=== PATIENT | male | born 1950 | race Caucasian/White ===

== ENCOUNTER 2018-09-16 10:21 | Inpatient (IN) | payer MEDICARE, OTHER ==
[~2018-09-16] VITALS: Ht 172.7 cm; Wt 96.7 kg
[2018-09-16] MEDS ORDERED: HYDR-3672 PO (11:32)
[2018-09-16] MEDS ORDERED: ASPI-817 PO (11:33)
[2018-09-16] MEDS ORDERED: SIMV40TA2 PO (11:33)
[2018-09-16] MEDS ORDERED: ERGO500013 PO (11:33)
[2018-09-16] MEDS ORDERED: FENO160T13 PO (11:34)
[2018-09-16] MEDS ORDERED: LOSA1TAB22 PO (11:34)
[2018-09-16] MEDS ORDERED: ESOM40CA PO (11:35)
[2018-09-16] MEDS ORDERED: NITROGLYCERIN 2% 1 GM OINT PKT TD STA (11:35)
[2018-09-16] MEDS ORDERED: GABA100C14 PO (11:35)
--- NOTE | 2018-09-16 11:40 | ERD ---
ER Documentation Chief Complaint Chief Complaint CP X2DAYS HPI 68-year-old male history of hypertension hyperlipidemia presents to the ED complaining of chest pain. Over the last several days patient has had episodes of exertional, moderate, nonradiating, pressure-like chest pain relieved by rest accompanied by mild shortness of breath no nausea, vomiting or diaphoresis. Currently asymptomatic. No leg pain or swelling. No URI symptoms, cough or hemoptysis. Denies anorexia, night sweats, fevers or chills. ROS All systems reviewed and are negative except as per history of present illness. Medications Home Meds Reported Medications Gabapentin* (Gabapentin*) 100 Mg Capsule, 100 MG PO TID, #90 CAP 09/16/18 Esomeprazole Mag Trihydrate (Nexium) 40 Mg Capsule.dr, 40 MG PO DAILY, #30 CAP 09/16/18 Fenofibrate, Micronized* (Fenofibrate*) 160 Mg Tablet, 160 MG PO DAILY, TAB 09/16/18 Losartan-Hydrochlorothiazide (Losartan-HCTZ) 50-12.5 Mg Tab, 1 TAB PO DAILY, TAB 09/16/18 Aspirin* (Aspirin* EC) 81 Mg Tablet.dr, 81 MG PO DAILY, TAB 09/16/18 Simvastatin* (Zocor*) 40 Mg Tablet, 40 MG PO QHS, #30 TAB 09/16/18 Ergocalciferol (Vitamin D2) (VITAMIN D2) 50,000 Unit Capsule, 32404 UNIT PO Q SUN, CAP 09/16/18 Hydralazine Hcl* (Apresoline*) 50 Mg Tab, 50 MG PO Q8 PRN for NEEDED, #90 TAB 09/16/18 Allergies Allergies: Coded Allergies: No Known Allergy (Unverified , 09/16/18) PMhx/Soc History of Surgery: Yes Anesthesia Reaction: No Hx Neurological Disorder: No Hx Respiratory Disorders: No Hx Cardiac Disorders: Yes (HTN) Hx Psychiatric Problems: No Hx Miscellaneous Medical Probl: Yes (Hyperlipidemia) Hx Alcohol Use: No Hx Substance Use: No Hx Tobacco Use: Yes Smoking Status: Current every day smoker FmHx No coronary artery disease, stroke or cancer. Physical Exam Vitals Vital Signs Date Temp Pulse Resp B/P (MAP) Pulse Ox O2 O2 Flow FiO2 Time Delivery Rate 09/16/18 72 15 143/78 99 Room Air 11:00 (99) 09/16/18 98.4 70 21 159/71 99 10:30 (100) Physical Exam Const: Alert, no acute distress Head: Atraumatic Eyes: Pupils equal reactive light, extraocular movements are intact. Anicteric. Normal Conjunctiva ENT: Normal External Ears, Nose and Mouth. Neck: Full range of motion. No JVD. No meningismus. Resp: Breath sounds are equal and clear to auscultation bilaterally. No rales rhonchi or wheezes. Cardio: Regular rate and rhythm, no murmurs. Chest wall: No tenderness, ecchymosis or bruising. Abd: Soft, obese, non tender, non distended. No rebound or guarding. Normal bowel sounds Skin: No petechiae or rashes Back: No midline or flank tenderness Ext: No cyanosis, or edema. No calf swelling or tenderness. Neur: Awake and alert. No focal deficit observed. Psych: Normal Mood and Affect. not anxious or depressed. Result Diagram: 09/18/18 0523 09/18/18522 Results 24 hrs Laboratory Tests Test 09/16/18 10:43 White Blood Count 6.6 10^3/ul Red Blood Count 5.09 10^6/ul Hemoglobin 15.4 g/dl Hematocrit 45.5 % Mean Corpuscular Volume 89.4 fl Mean Corpuscular Hemoglobin 30.3 pg Mean Corpuscular Hemoglobin Concent 33.8 g/dl Red Cell Distribution Width 12.7 % Platelet Count 206 10^3/UL Mean Platelet Volume 9.2 fl Immature Granulocytes % 0.500 % Neutrophils % 57.7 % Lymphocytes % 31.6 % Monocytes % 7.3 % Eosinophils % 2.1 % Basophils % 0.8 % Nucleated Red Blood Cells % 0.0 /100WBC Immature Granulocytes # 0.030 10^3/ul Neutrophils # 3.8 10^3/ul Lymphocytes # 2.1 10^3/ul Monocytes # 0.5 10^3/ul Eosinophils # 0.1 10^3/ul Basophils # 0.1 10^3/ul Nucleated Red Blood Cells # 0.0 10^3/ul Sodium Level 142 mmol/L Potassium Level 4.3 mmol/L Chloride Level 107 mmol/L Carbon Dioxide Level 26 mmol/L Anion Gap 9 Blood Urea Nitrogen 21 mg/dl Creatinine 0.95 mg/dl Est Glomerular Filtrat Rate mL/min > 60 mL/min Glucose Level 105 mg/dl Calcium Level 9.6 mg/dl Troponin I 0.133 ng/ml Current Medications Medications Dose Sig/Heriberto Start Time Status Last (Trade) Ordered Route PRN Stop Time Admin Dose Reason Admin 1 inch ONCE STAT 09/16/18 DC 09/16/18 Nitroglycerin TD 11:35 09/16/18 11:46 11:37 (Nitroglyceri n 2% Oint) Procedures/MDM DOCUMENTS REVIEWED: ED nurse, EMS report. EKG: Time: 1046. Sinus rhythm. Ventricular rate 67, normal MT and QRS intervals. No acute ST segment elevation or depression. No axis deviation or ectopy. My Interpretation: Normal EKG IMAGING: Chest AP portable. Cardiac silhouette is normal. The costophrenic angles are clear. No effusions or infiltrates. No abnormalities of the bony thorax. My interpretation. MEDICAL DECISION MAKIN-year-old male history of hypertension presents to the ED for evaluation CBC to evaluate for of chest pain. Anemia, leukocytosis and thrombocytopenia is unremarkable. Chemistry reveals no electrolyte abnormalities, hyperglycemia or renal insufficiency. Troponin is elevated at 0.133. EKG reveals no acute ischemic changes or dysrhythmia. Chest x-ray is unremarkable for CHF or pneumonia. Broad differentials considered including but not limited to acute coronary syndrome, pulmonary embolism, aortic dissection, musculoskeletal pain and gastritis/GERD. Heart score 4. Elevated troponin and chest pain without acute EKG changes consistent with non-ST segment elevation myocardial infarction. Aspirin is given. Admit to telemetry for cardiology consultation, further risk stratification, evaluation and management. PATIENT CARE TRANSITIONED: Time: 11: 40, Dr. Brown. Counseled patient and family regarding diagnosis, diagnostic results and plan for admission. Smoking Cessation Therapy: Pt. was lectured for greater than 3 minutes on the health risks of continued smoking and the benefits of cessation. Departure Diagnosis: Primary Impression: Chest pain Chest pain type: unspecified Qualified Codes: R07.9 - Chest pain, unspecified Additional Impressions: NSTEMI (non-ST elevated myocardial infarction) Hypertension Hypertension type: essential hypertension Qualified Codes: I10 - Essential (primary) hypertension Hyperlipidemia Hyperlipidemia type: unspecified Qualified Codes: E78.5 - Hyperlipidemia, unspecified Tobacco use disorder, severe, dependence Condition: Serious GRECIA ZAVALETA MD September 16, 2018 11:40
[2018-09-16] MEDS ORDERED: ONDANSETRON 4 MG INJ IV PRN ×2 (12:00→15:30)
[2018-09-16] MEDS ORDERED: ACETAMINOPHEN 325 MG TAB PO PRN ×2 (12:00→15:30)
[2018-09-16] MEDS ORDERED: morphine 2 MG INJ IV PRN (15:30)
[2018-09-16] MEDS ORDERED: LORAZEPAM 0.5 MG TAB PO PRN (15:30)
[2018-09-16] MEDS ORDERED: NITROGLYCERIN (SL) 0.4 MG TAB SL PRN (15:30)
[2018-09-16] MEDS ORDERED: SOD CHLORIDE 0.9% 1,000 ML IV SCH (15:30)
[2018-09-16] MEDS ORDERED: ZOLPIDEM 5 MG TAB PO PRN (15:30)
--- NOTE | 2018-09-16 16:17 | HP ---
DATE OF ADMISSION: 09/16/2018 PRESENTING COMPLAINT: Chest pain. HISTORY OF PRESENTING COMPLAINT: A 68-year-old male with past medical history of high blood pressure and dyslipidemia, who presents to the emergency room with intermittent chest pain lasting 2 to 3 days. The patient has been in the hospital until about 3 days ago when he started to have mild chest discomfort in the mid sternal area. Chest discomfort started as a niggling sensation and was intermittent, but kept recurring and kept getting more and more in intensity with every course. He was planning to see his primary care doctor and has a cardiology appointment in 3 days and was hoping he could wait until then. Unfortunately, the pain recurred again yesterday and persisted and warranted his emergency room visit today. In the ER visit today in the emergency room, preliminary evaluation is consistent with elevated troponin even though mild and the patient is being admitted for further workup and management. PAST MEDICAL HISTORY: High blood pressure, dyslipidemia, chronic neuropathy. PAST SURGICAL HISTORY: The patient denies. ALLERGIES: NO KNOWN DRUG ALLERGIES. SOCIAL HISTORY: He is a chronic smoker. Occasional alcohol use. Denies illicit drug use. FAMILY HISTORY: Positive for high blood pressure. REVIEW OF SYSTEMS: Per HPI. PHYSICAL EXAMINATION: GENERAL: He is a very pleasant male who is alert and oriented, in no distress. HEENT: His head is normocephalic without evidence of trauma. Pupils are equal, round and reactive. Mucous membranes are moist. Posterior pharynx is clear of erythema and exudate. NECK: Supple without adenopathy, tenderness. CHEST: Clear to auscultation. CARDIOVASCULAR: Heart sounds are S1 and S2 without added sounds or murmurs. ABDOMEN: Soft, nontender, nondistended. Normoactive bowel sounds. EXTREMITIES: The patient has no lower extremity edema. SKIN: Devoid of rash or jaundice. LABORATORY VALUES AND DIAGNOSTIC DATA: At this time, he has CBC and basic metabolic profile and also I reviewed the chest x-ray and his EKG. The main abnormality is just troponin elevation mildly. Chest x-ray and EKG were essentially unremarkable. ASSESSMENT: A 68-year-old male with past medical history of high blood pressure who presents to emergency room with complaints of 2 to 3-day history of intermittent worsening chest pain currently admitted and managed as follows: 1. Non-ST elevation myocardial infarction. 2. Hypertension with suboptimal control. 3. Current dyslipidemia. 4. Chronic neuropathy. 5. Chronic vitamin D deficiency, on supplementation. 6. History of gastroesophageal reflux disease. 7. Chronic tobacco user PLAN OF CARE: The patient will be admitted to telemetry floor and complete ACS rule out with 3 sets of cardiac enzymes. We will also get a 2D echocardiogram to assess vascular status, cardiology consultation for further intervention, supportive care with pain control, antipyretics if indicated and antiemetics also as indicated. Plan of care has been discussed with patient and his family in detail. Questions have been answered. For further information and clarification, please see the patient's chart. At this time, I will hold off on starting full dose anticoagulation therapy. Continue the patient on baby aspirin and follow trend of troponin levels. Of note, the patient has been very comfortable at the time and has no further chest pain. Smoking Cessation Therapy: Pt. was counselled for greater than 3 minutes on the health risks of continued smoking and the benefits of cessation, this will continue to be reinforced throughout hospitalization. Dictated By: HIPOLITO ONEILL MD BA/NTS Conf#: [id number] DID#: [id number] CC: LOVELY HODGSON MD; GRECIA ZAVALETA MD;*EndCC* MTDD
[2018-09-16 17:22] VITALS: PULSE 61
[2018-09-16 17:25] VITALS: BP 144/69; PULSE 63; RESP 20
[2018-09-16 17:31] VITALS: Ht 172.7 cm; Wt 96.7 kg
[2018-09-16] MEDS: DOCUSATE SODIUM 100 MG CAP PO SCH (18:04)
[2018-09-16] MEDS: HEPARIN 5,000 UNIT/1 ML VIAL SC SCH ×2 (18:38→22:58)
[2018-09-16 19:46] VITALS: BP 123/63; PULSE 62; RESP 20
[2018-09-16 20:00] VITALS: PULSE 67
--- NOTE | 2018-09-16 20:29 | CONS ---
DATE OF ADMISSION: 09/16/2018 DATE OF CONSULTATION: 09/16/2018 TYPE OF CONSULTATION: Cardiology. REASON FOR CONSULTATION: Non-ST elevation myocardial infarction. REQUESTING PHYSICIAN: Hipolito Oneill MD, from the hospitalist service. HISTORY OF PRESENT ILLNESS: Mr. Moore is a 68-year-old male with history of hypertension who state s that he does have exercise yesterday and after eating food, felt okay and then began to have a stra nge sensation in his chest. He said, "This stayed after a few minutes" and he was fine until the day of admission when he again woke up and had a strange pressure-like pain in his chest. The patient c alled his daughter and daughter called the paramedics. Upon arrival, temperature was 98.4, blood pre ssure 159/71, pulse 76, respiratory rate 21, satting 99%. The patient's labs were notable for white blood cell count of 6.6, hemoglobin 15.4, platelet count of 206, sodium 142, potassium 4.3, creatinin e 0.9, BUN 21, troponin positive at 0.133. The patient underwent a chest x-ray revealing no acute ca rdiopulmonary disease. The patient's electrocardiogram reveals sinus rhythm, rate of 64, normal axis , normal intervals with inferior T-wave flattening. The patient subsequently now awaits admit to the floor and has been treated with nitro paste. PAST MEDICAL HISTORY: As above in HPI. MEDICATIONS CURRENTLY IN HOSPITAL: 1. Aspirin 81 mg daily. 2. IV fluid hydration at 75 mL an hour. 3. Sublingual nitroglycerin p.r.n. 4. Colace p.r.n. 5. Morphine p.r.n. 6. Zofran p.r.n. 7. Heparin 5000 subcutaneously q.8. ALLERGIES: NO KNOWN DRUG ALLERGIES. SOCIAL HISTORY: Positive tobacco, social EtOH. No illicit drug use. FAMILY HISTORY: No history of sudden cardiac or early CAD. REVIEW OF SYSTEMS: As above in HPI. CONSTITUTIONAL: No fevers, chills. PULMONARY: No current shortness of breath. CARDIOVASCULAR: Intermittent chest pain. GASTROINTESTINAL: No vomiting. GENITOURINARY: No hematuria. MUSCULOSKELETAL: Degenerative joint disease. PSYCHIATRIC: Documented psych history, but possible anxiety by medications. NEUROLOGIC: No documented history of CVA. PHYSICAL EXAMINATION VITAL SIGNS: Temperature of 98.4, blood pressure 142/78, pulse 72, respiratory rate 15, satting 99% on room air. GENERAL: The patient is alert, awake, in no acute distress. NECK: JVP approximately is 8 to 9 cm of water. CHEST: Fair air movement throughout. HEART: Regular rate and rhythm. Normal S1, S2, I/ systolic murmur, nondisplaced PMI. ABDOMEN: Positive bowel sounds, soft. EXTREMITIES: No significant pitting edema, 1+ pulses bilateral posterior tibial. LABORATORY DATA: As above in HPI. No further labs for my review at this time. IMAGING STUDIES: As above in HPI. No further imaging studies for my review at this time. ELECTROCARDIOGRAM: As above in HPI. No further electrocardiograms for my review at this time. IMPRESSION: 1. Positive troponin consistent with non-ST elevation myocardial infarction. 2. Chest pain. 3. Abnormal electrocardiogram with T-wave flattening. 4. Hypertension. 5. Dyslipidemia. 6. Ongoing tobacco usage, tobacco dependence. RECOMMENDATIONS: 1. At this time, we would admit the patient to telemetry monitoring to follow rhythm and rate closel y. 2. We would continue the patient's aspirin at this time and we will continue the patient's subcutane ous heparin. If the patient's troponins continue to trend up, we will initiate the patient on IV hep alexander. 3. Place the patient on a beta michi in the setting of positive troponins and chest pain. 4. Give the patient sublingual nitroglycerin for recurrent episodes of chest pain. 5. Check a 2D echo for this patient's ejection fraction, wall motion and major valve abnormalities. 6. The patient will require either cardiac stress testing to assess significance of minimally positi ve troponin or if it continues to trend up and ongoing symptoms, will likely require a direct cardiac catheterization in order to assess possibility of significant obstructive coronary artery disease le nding to symptoms of chest pain and positive troponin and subsequent admit to the hospital. 7. Additionally, we will check a fasting lipid panel for general risk stratification and initiate li pid-lowering medication as necessary. Thank you for allowing me to take part in the care of this patient. I will continue to follow him ve ry closely with you with further recommendations to be made as the [facility]. Dictated By: LOVELY ALBERTO/AUDIE Conf#: [id number] DID#: [id number] CC: HIPOLITO ONEILL MD;*[facility]*
[2018-09-16] MEDS ORDERED: FAMOTIDINE 20 MG TAB PO SCH (21:00)
[2018-09-16] MEDS: ATORVASTATIN 20 MG TAB PO SCH (22:43)
[2018-09-16] MEDS: GABAPENTIN 100 MG CAP PO SCH (22:43)
[2018-09-16] MEDS: METOPROLOL 25 MG TAB PO SCH (22:51)
[2018-09-16 23:49] VITALS: BP 107/57; PULSE 67; RESP 20
[2018-09-17] VITALS (10 sets, daily range): BP systolic 100–121; BP diastolic 54–58; PULSE 56–69; RESP 19–20
[2018-09-17] MEDS: DOCUSATE SODIUM 100 MG CAP PO SCH ×2 (03:30→17:40)
[2018-09-17] MEDS: PANTOPRAZOLE (EC) 40 MG TAB PO SCH (06:24)
[2018-09-17] MEDS: HEPARIN 5,000 UNIT/1 ML VIAL SC SCH ×3 (06:35→22:25)
[2018-09-17] MEDS: FENOFIBRATE 145 MG TAB PO SCH (08:12)
[2018-09-17] MEDS: ASPIRIN 81 MG TAB PO SCH (08:12)
[2018-09-17] MEDS: HYDROCHLOROTHIAZIDE 12.5 MG CAP PO SCH (08:13)
[2018-09-17] MEDS: METOPROLOL 25 MG TAB PO SCH ×2 (08:13→21:00)
[2018-09-17] MEDS: GABAPENTIN 100 MG CAP PO SCH ×3 (08:14→22:10)
[2018-09-17] MEDS: LOSARTAN 50 MG TAB PO SCH (08:14)
--- NOTE | 2018-09-17 12:33 | PN ---
Date/Time of Note Date/Time of Note DATE: 09/17/18 TIME: 12:32 Objective Vitals Vital Signs Date Temp Pulse Resp B/P (MAP) Pulse Ox O2 O2 Flow FiO2 Time Delivery Rate 09/17/18 58 12:01 09/17/18 98.3 20 108/57 97 11:17 (74) 09/16/18 Room Air 17:25 Intake and Output 09/16/18 09/16/18 09/17/18 1515:00 23:00 07:00 IntakeIntake Total 400 ml BalanceBalance 400 ml Results Result Diagram: 09/17/1851609/17/18516 Medications Medications Current Medications Lorazepam (Ativan) 0.5 mg Q8H PRN PO .ANXIETY; Start 09/16/18 at 15:30 Ondansetron HCl (Zofran Inj) 4 mg Q6H PRN IV NAUSEA/VOMITING; Start 09/16/18 at 15:30 Aspirin (Aspirin) 81 mg DAILY PO Last administered on 09/17/18at 08:12; Admin Do se 81 MG; Start 09/17/18 at 09:00 Nitroglycerin (Nitroglycerin (Sl Tab) 0.4 Mg) 1 tab Q5M PRN SL .CHEST PAIN; Start 09/16/18 at 15:30 Acetaminophen (Tylenol Tab) 650 mg Q6H PRN PO .PAIN 1-3 OR TEMP; Start 09/16/18 at 15:30 Morphine Sulfate (morphine) 2 mg Q4H PRN IV .PAIN 7-10; Start 09/16/18 at 15:30 Zolpidem Tartrate (Ambien) 5 mg QHS PRN PO .INSOMNIA; Start 09/16/18 at 15:30 Docusate Sodium (Colace) 100 mg Q12H PO ; Start 09/16/18 at 15:30 Heparin Sodium (Porcine) (Heparin (5000 Units/1ml)) 5,000 unit Q8 SC Last administered on 09/17/18at 06:35; Admin Dose 5,000 UNIT; Start 09/16/18 at 15:30 Gabapentin (Neurontin) 100 mg TID PO Last administered on 09/17/18at 08:14; Admin Dose 100 MG; Start 09/16/18 at 21:00 Pantoprazole (Protonix Tab) 40 mg DAILY@0600 PO Last administered on 09/17/18 06:24; Admin Dose 40 MG; Start 09/17/18 at 06:00 Fenofibrate (Tricor) 145 mg DAILY PO Last administered on 09/17/18 08:12; Admin Dose 145 MG; Start 09/17/18 at 09:00 Atorvastatin Calcium (Lipitor) 20 mg QHS PO Last administered on 09/16/18at 22:43; Admin Dose 20 MG; Start 09/16/18 at 21:00 Losartan Potassium (Cozaar) 50 mg DAILY PO Last administered on 09/17/18 08:14; Admin Dose 50 MG; Start 09/17/18 at 09:00 Metoprolol Tartrate (Lopressor) 25 mg BID PO Last administered on 09/17/18 08:13; Admin Dose 25 MG; Start 09/16/18 at 21:00 Hydrochlorothiazide (Hydrochlorothiazide) 12.5 mg DAILY PO Last administered on 09/17/18 08:13; Admin Dose 12.5 MG; Start 09/17/18 at 09:00 VTE Prophylaxis Risk score (from Ns)>0 risk: 5 SCD applied (from Ns): No SCD contraindication: other Lines/Catheters IV Catheter Type: Garcia in Place: No Assessment/Plan Hospital Course Subjective Patient states he feels much better however still does have this lingering central chest abnormality Objective Physical exam General: Patient is laying in bed and answers questions appropriately Mentation: Patient is alert and oriented 4, Head: Normocephalic atraumatic Eyes: EOMI, pupils reactive to light Neck: Supple, nontender, midline Respiratory: Clear to auscultation bilaterally Cardiovascular: regular rate, no obvious murmurs Gastrointestinal: non-tender to palpation, bowel sounds heard. Neurological: Moves all extremities spontaneously Skin: No new skin lesions Assessment and plan Non-ST elevation [place] -Cardiology on board -Troponin within normal limits -Aspirin, statin -Continue metoprolol -Cardiology recommendations appreciated, Hypertension -Adjust home meds as needed This lipidemia -Continue home meds Chronic neuropathy -Continue meds GERD -Continue Protonix, add Carafate for throat discomfort Chronic tobacco use -Cessation suggested Disposition -Some mild discomfort, monitor for 24 more hours, defer to additional cardiology recommendations. LUIS FELIPE SHAH September 17, 2018 12:33
[2018-09-17] MEDS: SUCRALFATE (100 MG/ML) 10ML CUP PO SCH ×3 (13:32→22:08)
--- NOTE | 2018-09-17 14:56 | CONS ---
Assessment/Plan Assessment/Plan Hospital Course (Demo Recall) IMPRESSION: 1. Positive troponin consistent with non-ST elevation myocardial infarction.- now trended negative. NO active CP. 2. Chest pain. 3. Abnormal electrocardiogram with T-wave flattening. 4. Hypertension. 5. Dyslipidemia. 6. Ongoing tobacco usage, tobacco dependence. Recc: -Tele -Continue asa -Continue BB/HCTZ/losartan -Continue statin -Continue tricor -Will discuss LHC with patient placed on scheduled for wednesday versus lexiscan stress test in am to asses significance of initial positive troponin Consultation Date/Type/Reason Admit Date/Time September 16, 2018 at 11:41 Initial Consult Date 09/16/18 Type of Consult Cardiology Reason for Consultation Nstemi Requesting Provider: HIPOLITO ONEILL Date/Time of Note DATE: 09/17/18 TIME: 14:49 Exam/Review of Systems Vital Signs Vitals Vital Signs Date Temp Pulse Resp B/P (MAP) Pulse Ox O2 O2 Flow FiO2 Time Delivery Rate 09/17/18 58 12:01 09/17/18 98.3 20 108/57 97 11:17 (74) 09/16/18 Room Air 17:25 Intake and Output 09/16/18 09/16/18 09/17/18 1515:00 23:00 07:00 IntakeIntake Total 400 ml BalanceBalance 400 ml Exam Exam Review of Systems: CONSTITUTIONAL: No fevers, chills. PULMONARY: No sob CARDIOVASCULAR: No current chest pain GASTROINTESTINAL: No nausea/vomiting. GENITOURINARY: No hematuria/dysuria. MUSCULOSKELETAL: No myagias/arthalgias. PSYCHIATRIC: The patient denies depression. NEUROLOGIC: No weakness Constitutional: alert Psych: no complaints Head: normocephalic ENMT: mucosa pink and moist Neck: supple, jvd (9) Respiratory: diminished breath sounds Cardiovascular: regular rate and rhythm Gastrointestinal: soft, non-tender Musculoskeletal: muscle tone (normal) Extremities: edema (none) Neurological: other (NO focal deficits) Labs Result Diagram: 09/17/18 0509/17/18 05 Results 24hrs Laboratory Tests Test 09/16/18 16:11 09/16/18 22:47 09/17/18 05:17 Prothrombin Time 14.0 Prothrombin Time Ratio 1.1 INR International Normalized Ratio 1.07 Activated Partial Thromboplast Time 26.3 Creatine Kinase 46 35 Creatine Kinase Index 1.2 1.4 Creatinine Kinase MB (Mass) 0.54 0.49 Troponin I 0.097 0.109 White Blood Count 7.2 Red Blood Count 4.47 L Hemoglobin 13.7 L Hematocrit 40.1 L Mean Corpuscular Volume 89.7 Mean Corpuscular Hemoglobin 30.6 Mean Corpuscular Hemoglobin Concent 34.2 Red Cell Distribution Width 12.7 Platelet Count 196 Mean Platelet Volume 9.4 Immature Granulocytes % 0.700 H Neutrophils % 51.4 Lymphocytes % 35.7 Monocytes % 7.8 Eosinophils % 3.7 Basophils % 0.7 Nucleated Red Blood Cells % 0.0 Immature Granulocytes # 0.050 H Neutrophils # 3.7 Lymphocytes # 2.6 Monocytes # 0.6 Eosinophils # 0.3 Basophils # 0.1 Nucleated Red Blood Cells # 0.0 Sodium Level 141 Potassium Level 3.8 Chloride Level 109 Carbon Dioxide Level 24 Anion Gap 8 Blood Urea Nitrogen 18 Creatinine 0.93 Est Glomerular Filtrat Rate mL/min > 60 Glucose Level 97 Hemoglobin A1c 5.2 Calcium Level 9.0 Magnesium Level 2.0 Total Bilirubin 0.4 Direct Bilirubin 0.00 Indirect Bilirubin 0.4 Aspartate Amino Transf (AST/SGOT) 26 Alanine Aminotransferase (ALT/SGPT) 37 Alkaline Phosphatase 38 L Total Protein 6.2 Albumin 3.7 Triglycerides Level 280 H Cholesterol Level 147 LDL Cholesterol, Calculated 69 HDL Cholesterol 22 L Cholesterol/HDL Ratio 6.6 Thyroid Stimulating Hormone (TSH) 1.470 Medications Medications Current Medications Lorazepam (Ativan) 0.5 mg Q8H PRN PO .ANXIETY; Start 09/16/18 at 15:30 Ondansetron HCl (Zofran Inj) 4 mg Q6H PRN IV NAUSEA/VOMITING; Start 09/16/18 at 15:30 Aspirin (Aspirin) 81 mg DAILY PO Last administered on 09/17/18at 08:12; Admin Dose 81 MG; Start 09/17/18 at 09:00 Nitroglycerin (Nitroglycerin (Sl Tab) 0.4 Mg) 1 tab Q5M PRN SL .CHEST PAIN; Start 09/16/18 at 15:30 Acetaminophen (Tylenol Tab) 650 mg Q6H PRN PO .PAIN 1-3 OR TEMP; Start 09/16/18 at 15:30 Morphine Sulfate (morphine) 2 mg Q4H PRN IV .PAIN 7-10; Start 09/16/18 at 15:30 Zolpidem Tartrate (Ambien) 5 mg QHS PRN PO .INSOMNIA; Start 09/16/18 at 15:30 Docusate Sodium (Colace) 100 mg Q12H PO ; Start 09/16/18 at 15:30 Heparin Sodium (Porcine) (Heparin (5000 Units/1ml)) 5,000 unit Q8 SC Last administered on 09/17/18 13:38; Admin Dose 5,000 UNIT; Start 09/16/18 at 15:30 Gabapentin (Neurontin) 100 mg TID PO Last administered on 09/17/18 13:32; Admin Dose 100 MG; Start 09/16/18 at 21:00 Pantoprazole (Protonix Tab) 40 mg DAILY@0600 PO Last administered on 09/17/18 06:24; Admin Dose 40 MG; Start 09/17/18 at 06:00 Fenofibrate (Tricor) 145 mg DAILY PO Last administered on 09/17/18 08:12; Admin Dose 145 MG; Start 09/17/18 at 09:00 Atorvastatin Calcium (Lipitor) 20 mg QHS PO Last administered on 09/16/18 22:43; Admin Dose 20 MG; Start 09/16/18 at 21:00 Losartan Potassium (Cozaar) 50 mg DAILY PO Last administered on 09/17/18 08:14; Admin Dose 50 MG; Start 09/17/18 at 09:00 Metoprolol Tartrate (Lopressor) 25 mg BID PO Last administered on 09/17/18 08:13; Admin Dose 25 MG; Start 09/16/18 at 21:00 Hydrochlorothiazide (Hydrochlorothiazide) 12.5 mg DAILY PO Last administered on 09/17/18 08:13; Admin Dose 12.5 MG; Start 09/17/18 at 09:00 Sucralfate (Carafate Susp) 1 gm QID PO Last administered on 09/17/18 13:32; Admin Dose 1 GM; Start 09/17/18 at 13:00 LOVELY HODGSON September 17, 2018 14:56
--- NOTE | 2018-09-17 18:45 | RADRPT ---
Echocardiogram Report Patient Name: SUZAN ZHOUPatient ID: [id number] : 1950 (68y 8m)Study Date: 09/17/2018 7:41:45 AM Gender: MAccession #: [id number] Tech: Gurvinder Woods [facility] Location: [address] Ref.Physician: HIPOLITO ONEILL Height(Cm): BSA: Weight(Kg): Quality: AdequateAccount #: Procedures: Echocardiographic Report: Transthoracic echocardiogram with complete 2D, M-Mode, and doppler examination. Indications: NSTEMI. Measurements: 2D/M Mode Doppler Measurement Value Normal Range Measurement Value Normal Range LVIDd 2D 4.1 [ 4.2 - 5.8 ] cm AV Peak Bubba 1.2 [ 100.0 - 170.0 ] cm/sec LVIDs 2D 2.8 [ 2.5 - 4.0 ] cm AV Peak PG 6.0 [ 2.0 - 9.0 ] mmHg LVPWd 2D 1.0 [ 0.6 - 1.0 ] cm LVOT Peak Bubba 1.0 [ 70.0 - 110.0 ] cm/sec IVSd 2D 1.5 [ 0.6 - 1.0 ] cm LVOT Peak PG 4.0 [ 2.0 - 6.0 ] mmHg AoR Diam 2D 2.7 [ 2.6 - 3.4 ] cm MV E Peak Bubba 0.8 [ 60.0 - 130.0 ] cm/sec EDV 2D 75.5 [ 62.0 - 150.0 ] ml MV A Peak Bubba 0.9 [ 100.0 - 120.0 ] cm/sec ESV 2D 30.9 [ 21.0 - 61.0 ] ml MV E/A 0.9 [ 0.8 - 1.5 ] ratio EF 2D 59.1 [ 52.0 - 72.0 ] percent MV Decel Time 229 [ 104 - 258 ] msec LA Dimen 2D 4.0 [ 3.0 - 4.0 ] cm Lat E` Bubba 0.1 [ 10.0 - 15.0 ] cm/sec Lateral E/E` 7.3 [ 1.0 - 2.0 ] ratio MV E/A 0.9 [ 0.8 - 1.5 ] ratio TR Peak Bubba 2.7 [ 100.0 - 280.0 ] cm/sec TR Peak PG 29.0 mmHg RVSP 32.0 [ 10.0 - 36.0 ] mmHg Findings: Left Ventricle: Normal left ventricular systolic function. Normal left ventricular cavity size. Moderate asymmetric septal hypertrophy. Ejection fraction is visually estimated at 55-60 %. Tissue Doppler/Mitral Doppler indices are consistent with impaired relaxation (Stage I diastolic dysfunction). Right Ventricle: Normal right ventricular size. Normal right ventricular systolic function. Left Atrium: The left atrium is normal in size. Right Atrium: The right atrium is normal in size. Mitral Valve: Mild mitral leaflet calcification. Mild mitral annular calcification. Trace mitral regurgitation. Aortic Valve: No hemodynamically significant aortic stenosis by doppler. Mild aortic valve regurgitation. Tricuspid Valve: Normal appearance of the tricuspid valve. Estimated peak PA systolic pressure 32 mmHg. There is mild tricuspid regurgitation. Pericardium: Normal pericardium with no significant pericardial effusion. Aorta: Normal aortic root. IVC: Normal size and normal respiratory collapse consistent with normal right atrial pressure. Conclusions: Normal left ventricular systolic function. Normal left ventricular cavity size. Moderate asymmetric septal hypertrophy. Ejection fraction is visually estimated at 55-60 %. Tissue Doppler/Mitral Doppler indices are consistent with impaired relaxation (Stage I diastolic dysfunction). ). Mild mitral leaflet calcification. Mild mitral annular calcification. Trace mitral regurgitation. No hemodynamically significant aortic stenosis by doppler. Mild aortic valve regurgitation. Normal appearance of the tricuspid valve. Estimated peak PA systolic pressure 32 mmHg. There is mild tricuspid regurgitation. Electronically Signed By: Danny Moncada 2018-09-17 18:44:43 PDT
[2018-09-17] MEDS: ATORVASTATIN 20 MG TAB PO SCH (22:09)
[2018-09-18] VITALS (9 sets, daily range): BP systolic 115–137; BP diastolic 57–70; PULSE 57–71; RESP 18–19
[2018-09-18] MEDS: DOCUSATE SODIUM 100 MG CAP PO SCH ×2 (03:30→16:07)
[2018-09-18] MEDS: PANTOPRAZOLE (EC) 40 MG TAB PO SCH (06:18)
[2018-09-18] MEDS: HEPARIN 5,000 UNIT/1 ML VIAL SC SCH ×3 (06:27→21:37)
[2018-09-18] MEDS: SUCRALFATE (100 MG/ML) 10ML CUP PO SCH ×4 (08:46→21:11)
[2018-09-18] MEDS: GABAPENTIN 100 MG CAP PO SCH ×3 (08:46→21:11)
[2018-09-18] MEDS: FENOFIBRATE 145 MG TAB PO SCH (08:46)
[2018-09-18] MEDS: METOPROLOL 25 MG TAB PO SCH ×2 (08:47→21:12)
[2018-09-18] MEDS: HYDROCHLOROTHIAZIDE 12.5 MG CAP PO SCH (08:47)
[2018-09-18] MEDS: ASPIRIN 81 MG TAB PO SCH (08:47)
[2018-09-18] MEDS: LOSARTAN 50 MG TAB PO SCH (08:48)
[2018-09-18] MEDS ORDERED: hydrALAzine 20 MG INJ IV PRN (11:00)
[2018-09-18] MEDS ORDERED: REGADENOSON 0.4 MG/5 ML SYG ONE (11:03)
--- NOTE | 2018-09-18 11:29 | PN ---
Date/Time of Note Date/Time of Note DATE: 09/18/18 TIME: 11:28 Objective Vitals Vital Signs Date Temp Pulse Resp B/P (MAP) Pulse Ox O2 O2 Flow FiO2 Time Delivery Rate 09/18/18 59 08:01 09/18/18 98.1 19 135/63 97 07:29 (87) 09/16/18 Room Air 17:25 Intake and Output 09/17/18 09/17/18 09/18/18 1515:00 23:00 07:00 IntakeIntake Total 350 ml 650 ml BalanceBalance 350 ml 650 ml Results Result Diagram: 09/18/1852209/18/18522 Medications Medications Current Medications Lorazepam (Ativan) 0.5 mg Q8H PRN PO .ANXIETY; Start 09/16/18 at 15:30 Ondansetron HCl (Zofran Inj) 4 mg Q6H PRN IV NAUSEA/VOMITING; Start 09/16/18 at 15:30 Aspirin (Aspirin) 81 mg DAILY PO Last administered on 09/18/18at 08:47; Admin Dose 81 MG; Start 09/17/18 at 09:00 Nitroglycerin (Nitroglycerin (Sl Tab) 0.4 Mg) 1 tab Q5M PRN SL .CHEST PAIN; Start 09/16/18 at 15:30 Acetaminophen (Tylenol Tab) 650 mg Q6H PRN PO .PAIN 1-3 OR TEMP; Start 09/16/18 at 15:30 Morphine Sulfate (morphine) 2 mg Q4H PRN IV .PAIN 7-10; Start 09/16/18 at 15:30 Zolpidem Tartrate (Ambien) 5 mg QHS PRN PO .INSOMNIA; Start 09/16/18 at 15:30 Docusate Sodium (Colace) 100 mg Q12H PO Last administered on 09/17/18at 17:40; Admin Dose 100 MG; Start 09/16/18 at 15:30 Heparin Sodium (Porcine) (Heparin (5000 Units/1ml)) 5,000 unit Q8 SC Last administered on 09/18/18at 06:27; Admin Dose 5,000 UNIT; Start 09/16/18 at 15:30 Gabapentin (Neurontin) 100 mg TID PO Last administered on 09/18/18at 08:46; Admin Dose 100 MG; Start 09/16/18 at 21:00 Pantoprazole (Protonix Tab) 40 mg DAILY@0600 PO Last administered on 09/18/18 06:18; Admin Dose 40 MG; Start 09/17/18 at 06:00 Fenofibrate (Tricor) 145 mg DAILY PO Last administered on 09/18/18at 08:46; Admin Dose 145 MG; Start 09/17/18 at 09:00 Losartan Potassium (Cozaar) 50 mg DAILY PO Last administered on 09/18/18at 08:48; Admin Dose 50 MG; Start 09/17/18 at 09:00 Metoprolol Tartrate (Lopressor) 25 mg BID PO Last administered on 09/18/18at 08:47; Admin Dose 25 MG; Start 09/16/18 at 21:00 Sucralfate (Carafate Susp) 1 gm QID PO Last administered on 09/18/18 08:46; Admin Dose 1 GM; Start 09/17/18 at 13:00 Atorvastatin Calcium (Lipitor) 80 mg QHS PO ; Start 09/18/18 at 21:00 Hydralazine HCl (Apresoline) 10 mg Q4H PRN IV sbp greater than 160; Start 09/18/18 at 11:00 VTE Prophylaxis Risk score (from Nsg)>0 risk: 4 SCD applied (from Nsg): No SCD contraindication: other Lines/Catheters IV Catheter Type: Garcia in Place: No Assessment/Plan Hospital Course Subjective Patient doing well, stress test today Objective Physical exam General: Patient is laying in bed and answers questions appropriately Mentation: Patient is alert and oriented 4, Head: Normocephalic atraumatic Eyes: EOMI, pupils reactive to light Neck: Supple, nontender, midline Respiratory: Clear to auscultation bilaterally Cardiovascular: regular rate, no obvious murmurs Gastrointestinal: non-tender to palpation, bowel sounds heard. Neurological: Moves all extremities spontaneously Skin: No new skin lesions Assessment and plan Non-ST elevation [place] -Cardiology on board -Troponin within normal limits -Aspirin, statin -Continue metoprolol -Cardiology recommendations appreciated, Hypertension -Adjust home meds as needed This lipidemia -Continue home meds Chronic neuropathy -Continue meds GERD -Continue Protonix, add Carafate for throat discomfort Chronic tobacco use -Cessation suggested Disposition -Stress test today, monitor overnight for change in blood pressure medications. LUIS FELIPE SHAH 5, 2019 11:29
--- NOTE | 2018-09-18 12:23 | CONS ---
Assessment/Plan Assessment/Plan Hospital Course (Demo Recall) IMPRESSION: 1. Positive troponin consistent with non-ST elevation myocardial infarction.- now trended negative. NO active CP. 2. Chest pain. 3. Abnormal electrocardiogram with T-wave flattening. 4. Hypertension. 5. Dyslipidemia. 6. Ongoing tobacco usage, tobacco dependence. Recc: -Tele -Continue asa -Continue BB/HCTZ/losartan -Continue statin -Continue tricor -Lexiscan stres est today to assess significance of mildly positive troponin that now trended negative Consultation Date/Type/Reason Admit Date/Time September 16, 2018 at 11:41 Initial Consult Date 09/16/18 Type of Consult Cardiology Reason for Consultation poistive troponin/chest pain Requesting Provider: HIPOLITO ONEILL Date/Time of Note DATE: 09/18/18 TIME: 12:21 Exam/Review of Systems Vital Signs Vitals Vital Signs Date Temp Pulse Resp B/P (MAP) Pulse Ox O2 O2 Flow FiO2 Time Delivery Rate 09/18/18 59 08:01 09/18/18 98.1 19 135/63 97 07:29 (87) 09/16/18 Room Air 17:25 Intake and Output 09/17/18 09/17/18 09/18/18 1515:00 23:00 07:00 IntakeIntake Total 350 ml 650 ml BalanceBalance 350 ml 650 ml Exam Exam Review of Systems: CONSTITUTIONAL: No fevers, chills. PULMONARY: No sob CARDIOVASCULAR: No chest pain/palpitations GASTROINTESTINAL: No nausea/vomiting. GENITOURINARY: No hematuria/dysuria. MUSCULOSKELETAL: No myagias/arthalgias. PSYCHIATRIC: The patient denies depression. NEUROLOGIC: No weakness Constitutional: alert Psych: no complaints Head: normocephalic ENMT: mucosa pink and moist Neck: supple, jvd (9 cm water) Respiratory: diminished breath sounds Cardiovascular: regular rate and rhythm Gastrointestinal: soft, non-tender Musculoskeletal: muscle tone (normal) Extremities: edema (none) Neurological: other (No focal deficits) Labs Result Diagram: 09/18/18 0509/18/18 05 Results 24hrs Laboratory Tests Test 09/18/18 05:23 White Blood Count 6.2 Red Blood Count 4.73 Hemoglobin 14.3 Hematocrit 42.1 Mean Corpuscular Volume 89.0 Mean Corpuscular Hemoglobin 30.2 Mean Corpuscular Hemoglobin Concent 34.0 Red Cell Distribution Width 12.5 Platelet Count 199 Mean Platelet Volume 9.5 Immature Granulocytes % 0.700 H Neutrophils % 50.2 Lymphocytes % 36.6 Monocytes % 8.6 Eosinophils % 3.1 Basophils % 0.8 Nucleated Red Blood Cells % 0.0 Immature Granulocytes # 0.040 H Neutrophils # 3.1 Lymphocytes # 2.3 Monocytes # 0.5 Eosinophils # 0.2 Basophils # 0.1 Nucleated Red Blood Cells # 0.0 Sodium Level 142 Potassium Level 4.1 Chloride Level 109 Carbon Dioxide Level 24 Anion Gap 9 Blood Urea Nitrogen 18 Creatinine 1.10 Est Glomerular Filtrat Rate mL/min > 60 Glucose Level 105 Calcium Level 9.4 Phosphorus Level 2.8 Magnesium Level 2.1 Medications Medications Current Medications Lorazepam (Ativan) 0.5 mg Q8H PRN PO .ANXIETY; Start 09/16/18 at 15:30 Ondansetron HCl (Zofran Inj) 4 mg Q6H PRN IV NAUSEA/VOMITING; Start 09/16/18 at 15:30 Aspirin (Aspirin) 81 mg DAILY PO Last administered on 09/18/18at 08:47; Admin Dose 81 MG; Start 09/17/18 at 09:00 Nitroglycerin (Nitroglycerin (Sl Tab) 0.4 Mg) 1 tab Q5M PRN SL .CHEST PAIN; Start 09/16/18 at 15:30 Acetaminophen (Tylenol Tab) 650 mg Q6H PRN PO .PAIN 1-3 OR TEMP; Start 09/16/18 at 15:30 Morphine Sulfate (morphine) 2 mg Q4H PRN IV .PAIN 7-10; Start 09/16/18 at 15:30 Zolpidem Tartrate (Ambien) 5 mg QHS PRN PO .INSOMNIA; Start 09/16/18 at 15:30 Docusate Sodium (Colace) 100 mg Q12H PO Last administered on 09/17/18at 17:40; Admin Dose 100 MG; Start 09/16/18 at 15:30 Heparin Sodium (Porcine) (Heparin (5000 Units/1ml)) 5,000 unit Q8 SC Last administered on 09/18/18at 06:27; Admin Dose 5,000 UNIT; Start 09/16/18 at 15:30 Gabapentin (Neurontin) 100 mg TID PO Last administered on 09/18/18 08:46; Admin Dose 100 MG; Start 09/16/18 at 21:00 Pantoprazole (Protonix Tab) 40 mg DAILY@0600 PO Last administered on 09/18/18 06:18; Admin Dose 40 MG; Start 09/17/18 at 06:00 Fenofibrate (Tricor) 145 mg DAILY PO Last administered on 09/18/18 08:46; Admin Dose 145 MG; Start 09/17/18 at 09:00 Losartan Potassium (Cozaar) 50 mg DAILY PO Last administered on 09/18/18 08:48; Admin Dose 50 MG; Start 09/17/18 at 09:00 Metoprolol Tartrate (Lopressor) 25 mg BID PO Last administered on 09/18/18 08:47; Admin Dose 25 MG; Start 09/16/18 at 21:00 Sucralfate (Carafate Susp) 1 gm QID PO Last administered on 09/18/18 08:46; Admin Dose 1 GM; Start 09/17/18 at 13:00 Atorvastatin Calcium (Lipitor) 80 mg QHS PO ; Start 09/18/18 at 21:00 Hydralazine HCl (Apresoline) 10 mg Q4H PRN IV sbp greater than 160; Start 09/18/18 at 11:00 LOVELY HODGSON September 18, 2018 12:23
--- NOTE | 2018-09-18 15:01 | CONS ---
DATE OF ADMISSION: 09/16/2018 DATE OF CONSULTATION: 09/18/2018 LEXISCAN CARDIOLITE STRESS TEST, ELECTROCARDIOGRAM PORTION REASON FOR STRESS TESTING: Positive troponin, assess significance. REQUESTING PHYSICIAN: Viky Oneill MD, from hospitalist service. BASELINE VITAL SIGNS: On electrocardiogram, pulse 64, blood pressure 136/76. Electrocardiogram reve als a normal sinus rhythm, rate of 64, normal axis, normal intervals, inferior T-wave inversion, isol ated to lead III. PROCEDURE: The patient underwent standard Lexiscan infusion protocol over 10 seconds followed by rad iotracer. The patient's test was stopped due to completion of protocol. Maximal achieved blood pres sure during the test 174/81. Maximum heart rate during the test 92. ECG FINDINGS: The patient did not develop any new Lexiscan-induced ST or T-wave changes from baselin e abnormalities or documented PVCs. SYMPTOMS: The patient had no complaints of chest pain or shortness of breath during stress testing. IMPRESSION: 1. No Lexiscan-induced ST or T-wave changes from baseline abnormalities diagnostic of cardiac ischem ia. 2. No complaints of chest pain or shortness of breath during stress test. 3. No documented premature ventricular contractions during stress testing. 4. Report of nuclear images to follow in separate dictation. Dictated By: LOVELY ALBERTO/AUIDE Conf#: [id number] DID#: [id number] CC: VIKY ONEILL MD;*EndCC*
[2018-09-18] MEDS ORDERED: ATORVASTATIN 80 MG TAB PO SCH (21:00)
[2018-09-19] VITALS: PULSE 63
[2018-09-19] MEDS: DOCUSATE SODIUM 100 MG CAP PO SCH (03:29)
[2018-09-19 04:00] VITALS: BP 138/65; PULSE 57; PULSE 61; RESP 18
[2018-09-19] MEDS: PANTOPRAZOLE (EC) 40 MG TAB PO SCH (05:09)
[2018-09-19] MEDS: HEPARIN 5,000 UNIT/1 ML VIAL SC SCH (05:16)
[2018-09-19 07:18] VITALS: BP 115/58; PULSE 60; RESP 19
[2018-09-19 08:01] VITALS: PULSE 62
[2018-09-19] MEDS: LOSARTAN 50 MG TAB PO SCH (08:21)
[2018-09-19] MEDS: METOPROLOL 25 MG TAB PO SCH (08:21)
[2018-09-19] MEDS: GABAPENTIN 100 MG CAP PO SCH (08:22)
[2018-09-19] MEDS: FENOFIBRATE 145 MG TAB PO SCH (08:22)
[2018-09-19] MEDS: SUCRALFATE (100 MG/ML) 10ML CUP PO SCH (08:22)
[2018-09-19] MEDS: ASPIRIN 81 MG TAB PO SCH (08:22)
--- NOTE | 2018-09-19 11:15 | CONS ---
Assessment/Plan Assessment/Plan Hospital Course (Demo Recall) IMPRESSION: 1. Positive troponin consistent with non-ST elevation myocardial infarction.- now trended negative. NO active CP. . Lexiscan with no ischemia. NL EF 2. Chest pain. 3. Abnormal electrocardiogram with T-wave flattening. 4. Hypertension. 5. Dyslipidemia. 6. Ongoing tobacco usage, tobacco dependence. Recc: -Tele -Continue asa -Continue BB/HCTZ/losartan -Continue statin -Continue tricor -Given card with appointment for outpatient f/u Consultation Date/Type/Reason Admit Date/Time September 16, 2018 at 11:41 Initial Consult Date 09/16/18 Type of Consult Cardiology Reason for Consultation chest pain/positive troponin Requesting Provider: HIPOLITO ONEILL Date/Time of Note DATE: 09/19/18 TIME: 11:10 Exam/Review of Systems Vital Signs Vitals Vital Signs Date Temp Pulse Resp B/P (MAP) Pulse Ox O2 O2 Flow FiO2 Time Delivery Rate 09/19/18 62 08:01 09/19/18 98.0 19 115/58 95 07:18 (77) 09/19/18 Room Air 04:00 Intake and Output 09/18/18 09/18/18 09/19/18 1515:00 23:00 07:00 IntakeIntake Total 80 ml 720 ml 600 ml BalanceBalance 80 ml 720 ml 600 ml Exam Exam Review of Systems: CONSTITUTIONAL: No fevers, chills. PULMONARY: No sob CARDIOVASCULAR: No chest pain/palpitations GASTROINTESTINAL: No nausea/vomiting. GENITOURINARY: No hematuria/dysuria. MUSCULOSKELETAL: No myagias/arthalgias. PSYCHIATRIC: The patient denies depression. NEUROLOGIC: No weakness Constitutional: alert Psych: no complaints Head: normocephalic ENMT: mucosa pink and moist Neck: supple, jvd (9 cm water) Respiratory: diminished breath sounds Cardiovascular: regular rate and rhythm Gastrointestinal: soft, non-tender Musculoskeletal: muscle tone (normal) Extremities: edema Neurological: other (no focal defcits) Labs Result Diagram: 09/19/18 0449 09/19/18 0449 Results 24hrs Laboratory Tests Test 09/19/18 04:49 White Blood Count 7.1 Red Blood Count 4.78 Hemoglobin 14.6 Hematocrit 42.7 Mean Corpuscular Volume 89.3 Mean Corpuscular Hemoglobin 30.5 Mean Corpuscular Hemoglobin Concent 34.2 Red Cell Distribution Width 12.6 Platelet Count 201 Mean Platelet Volume 9.3 Immature Granulocytes % 0.600 H Neutrophils % 50.8 Lymphocytes % 35.6 Monocytes % 8.9 Eosinophils % 3.4 Basophils % 0.7 Nucleated Red Blood Cells % 0.0 Immature Granulocytes # 0.040 H Neutrophils # 3.6 Lymphocytes # 2.5 Monocytes # 0.6 Eosinophils # 0.2 Basophils # 0.1 Nucleated Red Blood Cells # 0.0 Sodium Level 141 Potassium Level 3.8 Chloride Level 108 Carbon Dioxide Level 23 Anion Gap 10 Blood Urea Nitrogen 19 Creatinine 1.01 Est Glomerular Filtrat Rate mL/min > 60 Glucose Level 112 Calcium Level 9.4 Phosphorus Level 3.1 Magnesium Level 2.2 Medications Medications Current Medications Lorazepam (Ativan) 0.5 mg Q8H PRN PO .ANXIETY; Start 09/16/18 at 15:30 Ondansetron HCl (Zofran Inj) 4 mg Q6H PRN IV NAUSEA/VOMITING; Start 09/16/18 at 15:30 Aspirin (Aspirin) 81 mg DAILY PO Last administered on 09/19/18at 08:22; Admin Dose 81 MG; Start 09/17/18 at 09:00 Nitroglycerin (Nitroglycerin (Sl Tab) 0.4 Mg) 1 tab Q5M PRN SL .CHEST PAIN; Start 09/16/18 at 15:30 Acetaminophen (Tylenol Tab) 650 mg Q6H PRN PO .PAIN 1-3 OR TEMP; Start 09/16/18 at 15:30 Morphine Sulfate (morphine) 2 mg Q4H PRN IV .PAIN 7-10; Start 09/16/18 at 15:30 Zolpidem Tartrate (Ambien) 5 mg QHS PRN PO .INSOMNIA; Start 09/16/18 at 15:30 Docusate Sodium (Colace) 100 mg Q12H PO Last administered on 09/18/18at 16:07; Admin Dose 100 MG; Start 09/16/18 at 15:30 Heparin Sodium (Porcine) (Heparin (5000 Units/1ml)) 5,000 unit Q8 SC Last administered on 09/19/18at 05:16; Admin Dose 5,000 UNIT; Start 09/16/18 at 15:30 Gabapentin (Neurontin) 100 mg TID PO Last administered on 09/18/18 21:11; Admin Dose 100 MG; Start 09/16/18 at 21:00 Pantoprazole (Protonix Tab) 40 mg DAILY@0600 PO Last administered on 09/19/18 05:09; Admin Dose 40 MG; Start 09/17/18 at 06:00 Fenofibrate (Tricor) 145 mg DAILY PO Last administered on 09/19/18 08:22; Admin Dose 145 MG; Start 09/17/18 at 09:00 Losartan Potassium (Cozaar) 50 mg DAILY PO Last administered on 09/19/18 08:21; Admin Dose 50 MG; Start 09/17/18 at 09:00 Metoprolol Tartrate (Lopressor) 25 mg BID PO Last administered on 09/19/18 08: 21; Admin Dose 25 MG; Start 09/16/18 at 21:00 Sucralfate (Carafate Susp) 1 gm QID PO Last administered on 09/19/18 08:22; Admin Dose 1 GM; Start 09/17/18 at 13:00 Atorvastatin Calcium (Lipitor) 80 mg QHS PO Last administered on 09/18/18 21:11; Admin Dose 80 MG; Start 09/18/18 at 21:00 Hydralazine HCl (Apresoline) 10 mg Q4H PRN IV sbp greater than 160; Start 09/18/18 at 11:00 LOVELY HODGSON September 19, 2018 11:15
[2018-09-19 11:18] VITALS: BP 130/62; PULSE 55; RESP 19
[2018-09-19] MEDS ORDERED: LOSA50TA2 PO (11:42)
[2018-09-19] MEDS ORDERED: METO-448 PO (11:42)
--- NOTE | 2018-09-19 11:45 | PDOCDIS ---
Discharge Instructions CONDITION [id number] Patient Condition: [id number] Stable FOLLOW UP/APPOINTMENTS Follow-up Plan 1. Please stop losartan hydrochlorothiazide combination pill, new prescriptions will be given, 2. Please start new prescriptions losartan 50 mg and metoprolol 25 mg. 3. Please follow-up with Dr. Moncada, cardiology within 1 to 2 weeks. LUIS FELIPE SHAH September 19, 2018 11:45
--- NOTE | 2018-09-19 11:48 | DS ---
Date/Time of Note Date/Time of Note DATE: 09/19/18 TIME: 11:48 Discharge Summary Admission/Discharge Info Admit Date/Time September 16, 2018 at 11:41 Discharge Date/Time Patient Condition: Stable Hospital Course Patient is Turk[place] male with a past medical history significant for hypertension, dyslipidemia, questionable chronic neuropathy and GERD who presents to [facility] for chest pain. Patient had a mild non- ST elevation OR and was seen by cardiology. Patient underwent stress test which does not show any perfusable defect, cardiology was concerned of his mildly elevated first troponin so offered cardiac cath however patient was asymptomatic at the time and felt like he will follow-up within 1 to 2 weeks with a human resources manager manufacturing for outpatient cardiac cath. Cardiology cleared patient for discharge and patient's new medications were extensively discussed maria fernanda at bedside and patient knows which ones to stop and which ones to now continue. Patient feeling well and will return to the ED if symptoms persist. Discharge diagnosis Non-ST elevation OR, resolving Chest pain, resolved Hypertension, chronic Dyslipidemia, chronic Neuropathy, chronic, not on medications GERD Home Meds Active Scripts Metoprolol Tartrate* (Lopressor*) 25 Mg Tab, 25 MG PO BID for 30 Days, #60 TAB 1 Refill Prov:LUIS FELIPE SHAH 09/19/18 Losartan Potassium* (Cozaar*) 50 Mg Tablet, 50 MG PO DAILY for 30 Days, #30 TAB 1 Refill Prov:LUIS FELIPE SHAH 09/19/18 Reported Medications Esomeprazole Mag Trihydrate (Nexium) 40 Mg Capsule.dr, 40 MG PO DAILY, #30 CAP 09/16/18 Fenofibrate, Micronized* (Fenofibrate*) 160 Mg Tablet, 160 MG PO DAILY, TAB 09/16/18 Aspirin* (Aspirin* EC) 81 Mg Tablet.dr, 81 MG PO DAILY, TAB 09/16/18 Simvastatin* (Zocor*) 40 Mg Tablet, 40 MG PO QHS, #30 TAB 09/16/18 Ergocalciferol (Vitamin D2) (VITAMIN D2) 50,000 Unit Capsule, 75088 UNIT PO Q SUN, CAP 09/16/18 Hydralazine Hcl* (Apresoline*) 50 Mg Tab, 50 MG PO Q8 PRN for NEEDED, #90 TAB 09/16/18 Discontinued Reported Medications Gabapentin* (Gabapentin*) 100 Mg Capsule, 100 MG PO TID, #90 CAP 09/16/18 Losartan-Hydrochlorothiazide (Losartan-HCTZ) 50-12.5 Mg Tab, 1 TAB PO DAILY, TAB 09/16/18 Follow-up Plan 1. Please stop losartan hydrochlorothiazide combination pill, new prescriptions will be given, 2. Please start new prescriptions losartan 50 mg and metoprolol 25 mg. 3. Please follow-up with Dr. Moncada, cardiology within 1 to 2 weeks. Primary Care Provider Not On Staff Doctor Time spent on discharge: > 30 minutes Pending Labs Laboratory Tests Test 09/19/18 04:49 White Blood Count 7.1 10^3/ul (4.8-10.8) Red Blood Count 4.78 10^6/ul (4.70-6.10) Hemoglobin 14.6 g/dl (14.0-18.0) Hematocrit 42.7 % (42.0-52.0) Mean Corpuscular Volume 89.3 fl (82.0-101.0) Mean Corpuscular Hemoglobin 30.5 pg (29.0-33.0) Mean Corpuscular Hemoglobin Concent 34.2 g/dl (32.0-37.0) Red Cell Distribution Width 12.6 % (11.5-14.5) Platelet Count 201 10^3/UL (140-415) Mean Platelet Volume 9.3 fl (7.4-10.4) Immature Granulocytes % 0.600 % (0.001-0.429) Neutrophils % 50.8 % (39.0-77.0) Lymphocytes % 35.6 % (15.0-51.0) Monocytes % 8.9 % (0.0-11.0) Eosinophils % 3.4 % (0.0-7.0) Basophils % 0.7 % (0.0-2.0) Nucleated Red Blood Cells % 0.0 /100WBC (0.0-0.0) Immature Granulocytes # 0.040 10^3/ul (0.0-0.031) Neutrophils # 3.6 10^3/ul (1.6-7.5) Lymphocytes # 2.5 10^3/ul (0.8-2.9) Monocytes # 0.6 10^3/ul (0.3-0.9) Eosinophils # 0.2 10^3/ul (0.0-0.5) Basophils # 0.1 10^3/ul (0.0-0.1) Nucleated Red Blood Cells # 0.0 10^3/ul (0.0-0.0) Sodium Level 141 mmol/L (135-144) Potassium Level 3.8 mmol/L (3.5-5.1) Chloride Level 108 mmol/L (97-110) Carbon Dioxide Level 23 mmol/L (21-31) Anion Gap 10 (5-13) Blood Urea Nitrogen 19 mg/dl (7-20) Creatinine 1.01 mg/dl (0.61-1.24) Est Glomerular Filtrat Rate mL/min > 60 mL/min (>60) Glucose Level 112 mg/dl (70-220) Calcium Level 9.4 mg/dl (8.4-10.2) Phosphorus Level 3.1 mg/dl (2.5-4.9) Magnesium Level 2.2 mg/dl (1.7-2.5) LUIS FELIPE SHAH September 19, 2018 11:48
[2018-09-19 12:01] VITALS: PULSE 62
== END 2018-09-19 12:56 | disposition home or self-care (01) | DRG 282 ==
LOC: E/R 10:21 → 6WM 11:41
PROVIDERS: ADMIT Family Medicine; ATTEND Internal Medicine
DX: I21.4 Non-ST elevation (NSTEMI) myocardial infarction (principal); I10 Essential (primary) hypertension; E78.5 Hyperlipidemia, unspecified; F17.200 Nicotine dependence, unspecified, uncomplicated; G62.9 Polyneuropathy, unspecified; E55.9 Vitamin D deficiency, unspecified; K21.9 Gastro-esophageal reflux disease without esophagitis; M19.90 Unspecified osteoarthritis, unspecified site
CPT/HCPCS: 36415; 71045; 78452; 80048; 80061; 80076; 82550; 82553; 83036; 83735; 84100; 84443; 84484; 85025; 85610; 85730; 93005; 93017; 93306; A9500; A9505; J1644; J2405; J2785; J7030

== ENCOUNTER 2018-09-21 20:47 | Emergency (ER) | payer MEDICARE, OTHER ==
[~2018-09-21] VITALS: Ht 177.8 cm; Wt 80.0 kg
[~2018-09-21 20:47] MED LIST: ASPI-817 PO; ERGO500013 PO; ESOM40CA PO; FENO160T13 PO; HYDR-3672 PO; LOSA50TA2 PO; METO-448 PO; SIMV40TA2 PO
[2018-09-21 20:52] VITALS: Ht 177.8 cm; Wt 80.0 kg
--- NOTE | 2018-09-21 23:40 | ERD ---
ER Documentation Chief Complaint Chief Complaint PT BIB RA FOR EVAL OF CP TODAY. NO SOB. SEEN FOR SAME 2 DAYS AGO HPI This is a 68-year-old male with a history of hypertension, tobacco use, hyperlipidemia who presents for evaluation of chest discomfort, noted over the right side of his upper chest. The patient had a similar presentation recently, where he had a mildly low platelet troponin, that subsequently down trended, he subsequently had a stress test that was negative. He was seen by cardiology, Dr. Moncada at that time, an angiogram was offered to the patient, he declined and wished to follow-up as an outpatient and have medical management in the interim. He denies any exertional symptoms, his discomfort is intermittent, he has not had a fever, no leg swelling no hemoptysis. ROS All systems reviewed and are negative except as per history of present illness. Medications Home Meds Active Scripts Metoprolol Tartrate* (Lopressor*) 25 Mg Tab, 25 MG PO BID for 30 Days, #60 TAB 1 Refill Prov:LUIS FELIPE SHAH 09/19/18 Losartan Potassium* (Cozaar*) 50 Mg Tablet, 50 MG PO DAILY for 30 Days, #30 TAB 1 Refill Prov:LUIS FELIPE SHAH 09/19/18 Reported Medications Esomeprazole Mag Trihydrate (Nexium) 40 Mg Capsule., 40 MG PO DAILY, #30 CAP 09/16/18 Fenofibrate, Micronized* (Fenofibrate*) 160 Mg Tablet, 160 MG PO DAILY, TAB 09/16/18 Aspirin* (Aspirin* EC) 81 Mg Tablet., 81 MG PO DAILY, TAB 09/16/18 Simvastatin* (Zocor*) 40 Mg Tablet, 40 MG PO QHS, #30 TAB 09/16/18 Ergocalciferol (Vitamin D2) (VITAMIN D2) 50,000 Unit Capsule, 48607 UNIT PO Q S UN, CAP 09/16/18 Hydralazine Hcl* (Apresoline*) 50 Mg Tab, 50 MG PO Q8 PRN for NEEDED, #90 TAB 09/16/18 Discontinued Reported Medications Gabapentin* (Gabapentin*) 100 Mg Capsule, 100 MG PO TID, #90 CAP 09/16/18 Losartan-Hydrochlorothiazide (Losartan-HCTZ) 50-12.5 Mg Tab, 1 TAB PO DAILY, TAB 09/16/18 Allergies Allergies: Coded Allergies: No Known Allergy (Unverified , 09/21/18) PMhx/Soc History of Surgery: Yes (RECTAL FISTULA 2 MO AGO) Anesthesia Reaction: No Hx Neurological Disorder: No Hx Respiratory Disorders: No Hx Cardiac Disorders: Yes (HTN) Hx Psychiatric Problems: No Hx Miscellaneous Medical Probl: Yes (Hyperlipidemia) Hx Alcohol Use: No Hx Substance Use: No Hx Tobacco Use: Yes (1 1/2 PACK/DAY) Smoking Status: Current some day smoker Physical Exam Vitals Vital Signs Date Temp Pulse Resp B/P (MAP) Pulse Ox O2 O2 Flow FiO2 Time Delivery Rate 09/21/18 64 18 141/48 98 Room Air 23:02 (79) 09/21/18 Nasal 2 20:58 Cannula 09/21/18 98.2 74 16 150/70 98 20:52 (96) Physical Exam Const: Well-developed, well-nourished, appears stated age Head: Atraumatic Eyes: Normal Conjunctiva ENT: Normal External Ears, Nose and Mouth. Neck: Full range of motion. No meningismus. Resp: Clear to auscultation bilaterally Cardio: Regular rate and rhythm, no murmurs Abd: Soft, non tender, non distended. Normal bowel sounds Skin: No petechiae or rashes Back: No midline or flank tenderness Ext: No cyanosis, or edema Neur: Awake and alert Psych: Normal Mood and Affect Result Diagram: 09/21/18 2100 09/21/18 2100 Results 24 hrs Laboratory Tests Test 09/21/18 21:00 09/21/18 23:00 White Blood Count 8.1 10^3/ul Red Blood Count 4.66 10^6/ul Hemoglobin 14.2 g/dl Hematocrit 41.0 % Mean Corpuscular Volume 88.0 fl Mean Corpuscular Hemoglobin 30.5 pg Mean Corpuscular Hemoglobin Concent 34.6 g/dl Red Cell Distribution Width 12.9 % Platelet Count 202 10^3/UL Mean Platelet Volume 9.2 fl Immature Granulocytes % 0.500 % Neutrophils % 54.8 % Lymphocytes % 33.5 % Monocytes % 7.4 % Eosinophils % 3.1 % Basophils % 0.7 % Nucleated Red Blood Cells % 0.0 /100WBC Immature Granulocytes # 0.040 10^3/ul Neutrophils # 4.5 10^3/ul Lymphocytes # 2.7 10^3/ul Monocytes # 0.6 10^3/ul Eosinophils # 0.3 10^3/ul Basophils # 0.1 10^3/ul Nucleated Red Blood Cells # 0.0 10^3/ul Sodium Level 142 mmol/L Potassium Level 4.0 mmol/L Chloride Level 109 mmol/L Carbon Dioxide Level 24 mmol/L Anion Gap 9 Blood Urea Nitrogen 26 mg/dl Creatinine 1.49 mg/dl Est Glomerular Filtrat Rate mL/min 47 mL/min Glucose Level 112 mg/dl Calcium Level 9.2 mg/dl Total Bilirubin 0.4 mg/dl Direct Bilirubin 0.00 mg/dl Indirect Bilirubin 0.4 mg/dl Aspartate Amino Transf (AST/SGOT) 36 IU/L Alanine Aminotransferase (ALT/SGPT) 55 IU/L Alkaline Phosphatase 47 IU/L Troponin I < 0.012 ng/ml < 0.012 ng/ml B-Type Natriuretic Peptide 121 PG/ML Total Protein 7.5 g/dl Albumin 4.3 g/dl Globulin 3.20 g/dl Albumin/Globulin Ratio 1.34 Procedures/MDM This is a 68-year-old male who presents for evaluation of chest pain. On exam, the patient was well-appearing and appears to be in no distress. He describes symptoms of discomfort, and it was atypical for angina, as it was localized to his right upper chest. He does have significant risk factors, as noted above, thus he was evaluated for acute coronary syndrome. He had a negative troponin x2, his EKG showed no distal ischemia. The patient did not wish to be admitted to the hospital, and preferred to follow-up with medical management, we had an extensive discussion regarding the alternative of admission and possible angiogram, and I also discussed this with the patient's flour worker Dr. Moncada. We will consider shared decision that the patient could be discharged home with close follow-up in the setting of having 2- troponins, as this was the patient's desire. Strict return precautions were given to return as soon as possible if patient has any chest pain, or any worsening symptoms, at discharge he was ambulatory and in no distress. EKG: Rate/Rhythm: Normal Sinus Rhythm QRS, ST, T-waves: No changes consistent w/ acute ischemia Impression: No evidence of ischemia or arrhythmia Departure Diagnosis: Primary Impression: Chest pain Chest pain type: unspecified Qualified Codes: R07.9 - Chest pain, unspecified Condition: Stable LUIS FELIPE LOPEZ MD September 21, 2018 23:40
[2018-09-22 00:08] VITALS: BP 140/52; PULSE 65; RESP 17
== END 2018-09-22 00:08 | disposition home or self-care (01) ==
LOC: E/R 20:47
DX: R07.9 Chest pain, unspecified (principal); I10 Essential (primary) hypertension; F17.210 Nicotine dependence, cigarettes, uncomplicated; Z79.82 Long term (current) use of aspirin
CPT/HCPCS: 36415; 71045; 80053; 83880; 84484; 85025; 93005